=== PATIENT | male | born 1995 | race Caucasian/White ===

== ENCOUNTER 2019-12-07 08:26 | Emergency (ER) | payer BC, SELFPAY ==
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
[2019-12-07 08:42] VITALS: BP 130/69; PULSE 70; RESP 16; TEMP 36.6; O2SAT 100
== END 2019-12-07 09:34 | disposition home or self-care (01) ==
PROVIDERS: Emergency Provider Nurse Practitioner Family
DX: Z04.1 Encounter for examination and observation following transport accident (principal)
CPT/HCPCS: 71046; 71120; 99213; G0463

== ENCOUNTER 2019-12-20 14:42 | Emergency (ER) | payer OTHER, BC, SELFPAY ==
[2019-12-20 14:48] VITALS: BP 103/79; PULSE 104; RESP 18; TEMP 36.9; O2SAT 100
[2019-12-20 14:51] VITALS: O2SAT 100
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
[2019-12-20 15:46] VITALS: BP 118/73; PULSE 98; RESP 18; TEMP 36.5; O2SAT 100
== END 2019-12-20 15:48 | disposition home or self-care (01) ==
PROVIDERS: Emergency Provider Emergency Medicine
DX: S20.211A Contusion of right front wall of thorax, initial encounter (principal); F17.200 Nicotine dependence, unspecified, uncomplicated; V49.40XA Driver injured in collision with unspecified motor vehicles in traffic accident, initial encounter
CPT/HCPCS: 99283

== ENCOUNTER → 2020-01-09 14:45 | Outpatient (CLI) | payer BC, SELFPAY ==
--- NOTE | ~2020-01-09 | XR_ITS ---
EXAMINATION: XR shoulder RT min 2V EXAM DATE: 01/09/2020 15:06 INDICATION: Right shoulder pain. TECHNIQUE: The following right shoulder projections obtained: frontal projection with internal rotati on, frontal projection with external rotation, Grashey, and axillary (4+ views). There is no prior s tudy for comparison. FINDINGS: No evidence of right shoulder rotator cuff calcific tendinosis. There is mild acromioclav icular joint primary osteoarthritis. There are no acute fractures or dislocations identified. There is no subcutaneous gas. The soft tissue is unremarkable. There are no radiopaque foreign bodies. IMPRESSION: Mild right, clavicular osteoarthritis. Reviewed, dictated and finalized at location B.
== END ==
LOC: EXPCRAD 14:49
PROVIDERS: PCP Physician Assistant; Visit Provider Family Medicine
DX: M19.011 Primary osteoarthritis, right shoulder (principal)
CPT/HCPCS: 73030

== ENCOUNTER 2020-12-06 13:02 | Emergency (ER) | payer OTHER, SELFPAY ==
[2020-12-06 13:14] VITALS: BP 109/63; PULSE 106; RESP 16; TEMP 36.3; O2SAT 100
--- NOTE | 2020-12-06 14:09 | ED.GENADULT ---
HPI - General Adult General Chief complaint: Skin/Abscess/Foreign Body Stated complaint: left willi infection Time Seen by Provider: 12/06/20 14:09 Source: patient and RN notes reviewed Mode of arrival: ambulatory Limitations: no limitations History of Present Illness HPI narrative: 25-year-old male presents with complaints of redness, pain, and swelling to left forearm after for the past 3-4 days. Nate reports increasing redness, pain, and redness to the area on LT forearm over the past 2 days. STEPHEN without relief. Intermittent drainage. Denies history of skin abscess and MRSA. ?No fever or chills. ?No abdominal pain, nausea, and vomiting. Remains active. Tetanus is up to date (4 years ago he believes). The patient reports he has not been diagnosed with COVID-19. The patient reports he is not waiting for the results of a COVID-19 lab test. The patient reports he does not have weakness, fatigue, or myalgia. The patient reports he does not have a new or worsening cough or shortness of breath. The patient reports he does not have any rhinorrhea, congestion, loss of taste or smell, sore throat, and diarrhea. Denies recent traveling. Denies concerns for COVID-19 or exposures. At this time, the patient is not suspected of having COVID-19. Some parts of this dictation were generated by voice recognition software and may contain typographical and/or grammatical inaccuracies. Related Data Allergies Allergy/AdvReac Type Severity Reaction Status Date / Time No Known Allergies Allergy Unknown Unverified 06/07/14 11:31 Review of Systems Review of Systems: CONSTITUTIONAL: Denies fever, chills, sweats. EYES: Denies visual changes, redness, discharge. ENT: Denies rhinorrhea, congestion, sore throat, otalgia. CARDIOVASCULAR: Denies chest pain, palpitations, edema. RESPIRATORY: Denies dyspnea, wheezing, cough. GASTROINTESTINAL: Denies abdominal pain, nausea, vomiting, diarrhea. SKIN: Denies rash or itching. Complaints of redness, pain, swelling, and intermittent drainage to the left forearm. MUSCULOSKELETAL: Denies acute back pain, joint pain, or myalgia. NEUROLOGIC: Denies numbness or focal weakness. PSYCHIATRIC: Denies anxiety or depression. All systems reviewed & are unremarkable except as noted in HPI and below. PMFSH Past Medical History Medical History Smoker Surgical History Surgical History (Updated 12/06/20 @ 14:18 by LENY Crook) No significant past surgical history Family History Family History (Updated 12/06/20 @ 14:18 by LENY Crook) Father Hypertension Mother Asthma Social History Social History (Updated 12/06/20 @ 14:19 by LENY Crook) Smoking packs per day: 0.5 Smoking cigarettes per day: 10.0 Years smoked: 10 Smoking pack-years: 5.00 Smoking status: Current every day smoker Tobacco type: cigarettes Second hand tobacco smoke exposure: Yes Alcohol intake: former Alcohol use details: Stopped 04/2018 Substance use: current Substance use type: marijuana Living arrangements: with family Occupation/Education: occupation Gender identity (if verbalized by the patient): Male Comments At time of signature, I have reviewed and agree with the nursing past medical, surgical, social, and family history. Please see the nursing chart for further information. There is no relevant family history pertinent to the presenting complaint. Exam Narrative: GENERAL: This is a well-nourished, well-developed patient, in no apparent distress. Talking in full sentences without deficit and ambulate with steady gait without dyspnea. HEAD: Normocephalic, atraumatic. EYES: PERRL. Sclera clear/white. Vision is grossly intact. NECK: Neck supple, non-tender without lymphadenopathy, masses, or thyromegaly. CARDIOVASCULAR: Regular rate and rhythm without murmurs, gallops, or rubs. RESPIRATORY: Clear to auscultation. Breath sounds equal bilaterally. No wheezes,
== END 2020-12-06 14:32 | disposition home or self-care (01) ==
PROVIDERS: Emergency Provider Nurse Practitioner Family
DX: L02.414 Cutaneous abscess of left upper limb (principal); F17.210 Nicotine dependence, cigarettes, uncomplicated
CPT/HCPCS: 99213; G0463

== ENCOUNTER 2021-03-25 12:14 | Emergency (ER) | payer OTHER, SELFPAY ==
[2021-03-25 12:23] VITALS: BP 111/68; PULSE 98; RESP 16; TEMP 36.6; O2SAT 99
--- NOTE | 2021-03-25 12:29 | ED.URI ---
HPI - URI/Sore Throat General Chief Complaint: Upper Respiratory Infection Stated Complaint: No taste/no smell/fever/sin Source: patient and RN notes reviewed Mode of arrival: ambulatory History of Present Illness HPI Narrative: This is a 26-year-old male who presented to urgent care with complaints of uncontrollable cough with greenish sputum with shortness of breath. According to patient he did not do anything at home to relieve her symptoms. He has not been vaccinated. Patient also has a ulcer to his left forearm that started off as a palpable. Patient notes that he has been cleaning the open area with soap and water peroxide and triple antibiotic ointment. the patient denies , CP, palpitation, extremity numbness, lightheadedness, dizziness, constipation, diarrhea, chills, or fever. Patient denies any contact with Covid positive person. Related Data Allergies Allergy/AdvReac Type Severity Reaction Status Date / Time No Known Allergies Allergy Unknown Verified 03/25/21 12:18 Review of Systems Review of Systems: A 14 organ system Review of Systems was performed and pertinent positives included in the HPI, otherwise remaining ROS is negative. [facility] Past Medical History Medical History Smoker Surgical History Surgical History (Updated 12/06/20 @ 14:18 by LENY Crook) No significant past surgical history Family History Family History (Updated 12/06/20 @ 14:18 by LENY Crook) Father Hypertension Mother Asthma Social History Social History (Updated 12/06/20 @ 14:19 by LENY Crook) Smoking packs per day: 0.5 Smoking cigarettes per day: 10.0 Years smoked: 10 Smoking pack-years: 5.00 Smoking status: Current every day smoker Tobacco type: cigarettes Second hand tobacco smoke exposure: Yes Alcohol intake: former Alcohol use details: Stopped 04/2018 Substance use: current Substance use type: marijuana Gender identity (if verbalized by the patient): Male Exam Narrative: GENERAL: This is a well-nourished, well-developed patient, in no apparent distress. HEAD: normocephalic, atraumatic. EYES: PERRL. Sclera clear/white. Vision is grossly intact. EARS: External ears normal, auditory canals clear and without drainage, TMs normal without perforation. Hearing grossly intact. NOSE: External nose normal with no obvious nasal discharge, nares without redness, no rhinorrhea. THROAT: Mucous membranes moist, posterior pharynx clear. NECK: Neck supple, non-tender without lymphadenopathy, masses or thyromegaly. CARDIOVASCULAR: Regular rate and rhythm without murmurs, gallops, or rubs. RESPIRATORY: Clear to auscultation. Breath sounds equal bilaterally. No wheezes, rales, or rhonchi. GASTROINTESTINAL: Abdomen soft, non-tender, nondistended. Bowel sounds are active. No hepato-splenomegaly, or palpable masses. No guarding. SKIN: Open area ulcer to the left forearm approximately 1 x 1 cm with edema erythematous to surrounding tissue NEURO: awake, alert, and oriented to person, place and time. There were no obvious focal neurologic abnormalities. Steady gait EXTREMITIES: Normal range of motion. No edema. No calf tenderness. Negative Homans sign bilaterally. BACK: Nontender without deformity or crepitance. No flank tenderness. Course Course Emergency Course: Patient will be tested for Covid instructed to stay quarantine until results return. He also will be treated for cellulitis with Augmentin, discharged with albuterol, Mucinex. Vital Signs Vital signs: Vital Signs Temperature 97.9 F 03/25/21 12:23 Pulse Rate 98 03/25/21 12:23 Respiratory Rate 16 03/25/21 12:23 Blood Pressure 111/68 03/25/21 12:23 Pulse Oximetry 99 03/25/21 12:23 Temperature 97.9 F 03/25/21 12:23 Pulse Rate 98 03/25/21 12:23 Respiratory Rate 16 03/25/21 12:23 Blood Pressure 111/68 03/25/21 12:23 Pulse Oximetry 99 03/25/21 12:23 MDM - URI/Sore Throat Diffe
== END 2021-03-25 13:06 | disposition home or self-care (01) ==
PROVIDERS: Emergency Provider Nurse Practitioner
DX: Z20.822 Contact with and (suspected) exposure to COVID-19 (principal); L03.116 Cellulitis of left lower limb; F17.210 Nicotine dependence, cigarettes, uncomplicated
CPT/HCPCS: 99213; G0463

== ENCOUNTER → 2021-03-27 10:09 | Outpatient (CLI) | payer OTHER, SELFPAY ==
[2021-03-27 19:27] LABS: SARS-CoV-2 RNA PCR Positive
== END ==
PROVIDERS: Visit Provider Nurse Practitioner
DX: U07.1 COVID-19 (principal)
CPT/HCPCS: C9803; U0003; U0005

== ENCOUNTER 2021-07-08 16:58 | Emergency (ER) | payer SELFPAY ==
[2021-07-08 17:09] VITALS: BP 120/70; PULSE 80; RESP 16; TEMP 36.3; O2SAT 99
--- NOTE | 2021-07-08 17:56 | ED.EYEPROB ---
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 Pt attempted removal but unsuccessful. Pt has had metal FB in the past. Endorses pain and watery eye. denies vision loss. Attempted to be evaluated by head piece assembler but was told he needed appointment. MD chief complaint: eye pain Related Data Allergies Allergy/AdvReac Type Severity Reaction Status Date / Time No Known Allergies Allergy Unknown Verified 03/25/21 12:18 Review of Systems Review of Systems: CONSTITUTIONAL: Denies body aches, fever, chills EYES:Endorses redness and pain to left eye; with metal FB sensation, photophobia ENT: Denies rhinorrhea, congestion, sore throat, or otalgia. CARDIOVASCULAR: Denies chest pain, palpitations RESPIRATORY: Denies cough or dyspnea. GASTROINTESTINAL: Denies abdominal pain, nausea, vomiting, or diarrhea. SKIN: Denies rash, itching, or wounds. MUSCULOSKELETAL: Denies back pain, joint pain, or myalgia. NEUROLOGIC: Denies headache, numbness, tingling, or weakness. PSYCH: Denies depression or anxiety. All systems reviewed & are unremarkable except as noted in HPI and below PMFSH Past Medical History Medical History Smoker Surgical History Surgical History No significant past surgical history Family History Family History Father Hypertension Mother Asthma Social History Social History Smoking packs per day: 0.5 Smoking cigarettes per day: 10.0 Years smoked: 10 Smoking pack-years: 5.00 Smoking status: Current every day smoker Tobacco type: cigarettes Second hand tobacco smoke exposure: Yes Alcohol intake: former Alcohol use details: Stopped 04/2018 Substance use: current Substance use type: marijuana Gender identity (if verbalized by the patient): Male Comments At time of signature, I have reviewed and agree with nursing past medical, surgical, social and family history unless otherwise noted. Please see nursing chart for further information. There is no relevant family history pertinent to the presenting complaint Exam Narrative: GENERAL: Appears in pain, no acute distress. HEAD: Normocephalic, atraumatic. EYES: left conjunctival injection, approx 0.5mm FB to distal mid iris c/w metallic fb. No rust ring. EOMI. ENT: Mucous membranes pink and moist. No rhinorrhea. NECK: Normal AROM. Supple. No lymphadenopathy. CHEST: No respiratory distress. Clear to auscultation. HEART: Regular rate and rhythm. ABDOMEN: Soft, nontender, nondistended MUSCULOSKELETAL: No bony tenderness. EXTREMITIES: Normal range of motion. SKIN: Warm, dry, no rash. Normal skin turgor. NEURO: Alert and oriented x3. PSYCH: Normal affect. Course Course Emergency Course: Patient is aware of diagnosis, understands and agrees to treatment plan. Anticipatory guidance given. Patient agrees to follow-up as directed and is aware of reasons to seek care at the emergency department. Portions of this record may have been created with voice recognition software Level of Care: Express Care Visit Vital Signs Vital signs: Vital Signs Temperature 97.3 F L 07/08/21 17:09 Pulse Rate 80 07/08/21 17:09 Respiratory Rate 16 07/08/21 17:09 Blood Pressure 120/70 07/08/21 17:09 Pulse Oximetry 99 07/08/21 17:09 Temperature 97.3 F L 07/08/21 17:09 Pulse Rate 80 07/08/21 17:09 Respiratory Rate 16 07/08/21 17:09 Blood Pressure 120/70 07/08/21 17:09 Pulse Oximetry 99 07/08/21 17:09 Procedures FB Removal Eye Foreign Body #1: Foreign Bod
== END 2021-07-08 18:22 | disposition home or self-care (01) ==
PROVIDERS: Emergency Provider Nurse Practitioner Family
DX: T15.02XA Foreign body in cornea, left eye, initial encounter (principal); X58.XXXA Exposure to other specified factors, initial encounter; F17.210 Nicotine dependence, cigarettes, uncomplicated
CPT/HCPCS: 65220; 99213; A9270; G0463